=== PATIENT | male | born 1960 | race Caucasian/White ===

== ENCOUNTER 2017-07-13 23:30 | Observation (INO) | payer OTHER ==
[~2017-07-13] VITALS: Ht 175.3 cm; Wt 82.3 kg
[~2017-07-13 23:30] MED LIST: Aspirin Ec PO; BIPOLAR MED; DEPAKOTE125 MG PO; DIABETIC MED; DOES NOT KNOW MEDS; LANTUS 3 M100 UNITS/ SC; LANTUS 3 M100 UNITS1 SC; LISINOPRIL2.5 MG PO; METOPROLOL SUCC25 MG PO; MOBIC7.5 MG PO; Motrin PO; PANTOPRAZOLE SO40 MG PO; RISPERDAL1 MG PO; RISPERDAL3 MG PO; RISPERDAL4 MG PO
[2017-07-14 00:38] LABS: HEMATOCRIT 39.6 % (38.0-50.0); MCH 29.7 PG (29.0-34.0); MCHC 36.9 G/DL (30.0-36.0); MCV 80.7 FL (86-99); MEAN PLAT.VOLUME 11.4 uM^3 (9.0-12.4); PLATELET COUNT 179 K/uL (156-360); RBC DIS.WIDTH-CV 12.1 % (11.8-14.6); RBC DIS.WIDTH-SD 35.1 % (39-53); RED BLOOD COUNT 4.91 M/uL (4.00-5.50); WHITE BLOOD COUNT 9.1 K/uL (4.1-10.2)
[2017-07-14 00:50] LABS: CHLORIDE 96 mEq/L (99-109); SODIUM 133 mEq/L (136-147)
[2017-07-14 00:53] LABS: GLUCOSE 339 mg/dL (70-99)
[2017-07-14 00:54] LABS: ANION GAP 11 MEQ/L (2-14)
[2017-07-14 00:55] LABS: TOTAL BILIRUBIN 1.3 mg/dL (0.0-1.0)
[2017-07-14 00:56] LABS: ALKALINE PHOSPHATASE 73 IU/L (3-129); GFR ESTIMATE (CALCULATED) > 59 mL/min/
[2017-07-14 00:57] LABS: UREA NITROGEN (BUN) 11 mg/dL (9-23)
[2017-07-14 00:58] LABS: TROP-I INTERPRETATION NEGATIVE; TROPONIN-I < 0.01 ng/mL (0.0-0.30)
[2017-07-14 01:00] LABS: LIPASE 34 U/L (1.0-51.0)
[2017-07-14 01:18] LABS: CARBON DIOXIDE (BICARBONATE) 33.1 MEQ/L (20-31)
[2017-07-14 01:19] LABS: INTER. NORMALIZED RATIO 1.1; PROTHROMBIN TIME 11.7 SEC (10.2-12.9)
[2017-07-14 01:21] LABS: D-DIMER ELISA < 150.00 ng/mLDDU (<230); PTT 27.9 SEC (25-37)
[2017-07-14 03:05] LABS: POINT-OF-CARE METER ID UU13113747
[2017-07-14] MEDS ORDERED: RISPERIDONE4 MG PO (04:58)
[2017-07-14] MEDS ORDERED: LIPITOR80 MG PO (04:58)
[2017-07-14] MEDS ORDERED: PRINIVIL20 MG PO (04:59)
[2017-07-14] MEDS ORDERED: TOPROL XL50 MG PO (05:00)
[2017-07-14] MEDS ORDERED: GLIPIZIDE5 MG PO (05:01)
[2017-07-14 05:03] LABS: SAMPLE HEMOLYSIS CHECK 0; SAMPLE ICTERIC CHECK 0; SAMPLE LIPEMIA CHECK 0
[2017-07-14 05:42] LABS: POINT-OF-CARE METER ID UU13113747
[2017-07-14] MEDS ORDERED: ASPIR-LOW81 MG PO (08:56)
[2017-07-14 09:00] VITALS: BP 134/92
[2017-07-14 09:07] LABS: POINT-OF-CARE METER ID UU13113747
[2017-07-14 09:40] LABS: TROP-I INTERPRETATION NEGATIVE; TROPONIN-I 0.01 ng/mL (0.0-0.30)
[2017-07-14 09:53] LABS: Estimated Average Glucose 275 mg/dL (70-123); HDL CHOLESTEROL 28 MG/DL (Desirable>=40); HEMOGLOBIN A1c (GLYCOHEMOGLOB) 11.2 % HGB (Below 5.7); LDL CHOLESTEROL 40 mg/dL (Desirable<100); NON-HDL CHOLESTEROL 70 mg/dL (Desirable<160); TOTAL CHOLESTEROL 98 mg/dL (Desirable<200); TRIGLYCERIDES 149 MG/DL (Normal: <150)
[2017-07-14 12:01] VITALS: BP 177/82
[2017-07-14 12:19] LABS: POINT-OF-CARE METER ID UU13113831
[2017-07-14 15:05] LABS: TROP-I INTERPRETATION NEGATIVE; TROPONIN-I 0.02 ng/mL (0.0-0.30)
[2017-07-14 16:30] VITALS: BP 152/99
[2017-07-14 17:32] LABS: POINT-OF-CARE METER ID UU13113831
[2017-07-14 19:45] VITALS: BP 175/81
[2017-07-14 22:21] LABS: POINT-OF-CARE METER ID UU14162513
[2017-07-15] VITALS: BP 161/76
[2017-07-15 03:50] VITALS: BP 168/84
[2017-07-15 05:56] LABS: ALKALINE PHOSPHATASE 65 IU/L (3-129); AMYLASE 32 IU/L (1-118); DIRECT BILIRUBIN 0.3 mg/dL (0.0-0.3); TOTAL BILIRUBIN 1.7 MG/DL (0.0-1.0)
[2017-07-15 07:57] VITALS: BP 185/90
[2017-07-15] MEDS ORDERED: NITROSTAT0.4 MG SL (11:07)
[2017-07-15] MEDS ORDERED: LISINOPRIL40 MG PO (11:07)
[2017-07-15] MEDS ORDERED: GLIPIZIDE5 MG PO (11:07)
[2017-07-15] MEDS ORDERED: PANTOPRAZOLE SO40 MG PO (11:07)
== END 2017-07-15 16:06 | disposition home or self-care (01) ==
LOC: EME → EDBD 23:30 → EDOF 07-14 07:40 → 5WEST 07-14 07:40 → ENRESERV 07-14 07:47 → 5WEST 07-14 09:17
PROVIDERS: Emergency Medicine; Internal Medicine; Specialist
DX: R07.9 Chest pain, unspecified (principal); R11.2 Nausea with vomiting, unspecified; K21.9 Gastro-esophageal reflux disease without esophagitis; R17 Unspecified jaundice; I25.10 Atherosclerotic heart disease of native coronary artery without angina pectoris; I25.2 Old myocardial infarction; Z95.5 Presence of coronary angioplasty implant and graft; I10 Essential (primary) hypertension; E78.5 Hyperlipidemia, unspecified; R93.3 Abnormal findings on diagnostic imaging of other parts of digestive tract; E11.65 Type 2 diabetes mellitus with hyperglycemia; F17.200 Nicotine dependence, unspecified, uncomplicated; Z91.19 Patient's noncompliance with other medical treatment and regimen; Z91.14 Patient's other noncompliance with medication regimen; F10.10 Alcohol abuse, uncomplicated; F31.9 Bipolar disorder, unspecified; M19.90 Unspecified osteoarthritis, unspecified site; Z79.82 Long term (current) use of aspirin; Z79.84 Long term (current) use of oral hypoglycemic drugs
CPT/HCPCS: 71020; 74000; 74177; 80053; 80061; 80076; 82010; 82150; 82803; 82948; 83036; 83690; 84484; 85027; 85379; 85610; 85730; 93005; 99281; 99285; G0378; J1815; J2270; J2405; J7030; S0028

== ENCOUNTER 2017-07-22 16:26 | Emergency (ER) | payer OTHER ==
[~2017-07-22] VITALS: Ht 172.7 cm; Wt 83.6 kg
[~2017-07-22 16:26] MED LIST changes: +ASPIR-LOW81 MG PO; +GLIPIZIDE5 MG PO; +LIPITOR80 MG PO; +LISINOPRIL40 MG PO; +NITROSTAT0.4 MG SL; +PRINIVIL20 MG PO; +RISPERIDONE4 MG PO; +TOPROL XL50 MG PO
[2017-07-22 17:35] LABS: HEMATOCRIT 41.6 % (38.0-50.0); MCH 30.4 PG (29.0-34.0); MCHC 37.5 G/DL (30.0-36.0); MCV 80.9 FL (86-99); MEAN PLAT.VOLUME 12.4 uM^3 (9.0-12.4); PLATELET COUNT 196 K/uL (156-360); RBC DIS.WIDTH-SD 34.9 % (39-53); RED BLOOD COUNT 5.14 M/uL (4.00-5.50); WHITE BLOOD COUNT 8.9 K/uL (4.1-10.2)
[2017-07-22 17:46] LABS: CHLORIDE 97 mEq/L (99-109); POTASSIUM 3.7 mEq/L (3.7-5.4); SODIUM 133 mEq/L (136-147)
[2017-07-22 17:48] LABS: GLUCOSE 236 mg/dL (70-99)
[2017-07-22 17:49] LABS: ANION GAP 12 MEQ/L (2-14)
[2017-07-22 17:50] LABS: TOTAL BILIRUBIN 1.5 mg/dL (0.0-1.0)
[2017-07-22 17:51] LABS: ALKALINE PHOSPHATASE 61 IU/L (3-129)
[2017-07-22 17:52] LABS: GFR ESTIMATE (CALCULATED) > 59 mL/min/
[2017-07-22 17:53] LABS: UREA NITROGEN (BUN) 15 mg/dL (9-23)
[2017-07-22 18:48] LABS: LIPASE 43 U/L (1.0-51.0)
[2017-07-22 19:04] VITALS: BP 150/89
[2017-07-22 19:12] LABS: ADD MIUA? NO; BILIRUBIN NEGATIVE; BLOOD NEGATIVE; COLOR STRAW ((YELLOW)); GLUCOSE (STRIP) >=500; KETONES NEGATIVE; LEUKOCYTES NEGATIVE; NITRITE NEGATIVE; PROTEIN (STRIP) NEGATIVE; SPECIFIC GRAVITY 1.002 (1.000-1.030); UCUL ADDED? NO; UROBILINOGEN 0.2 MG/DL (0.2-1.0)
[2017-07-22] MEDS ORDERED: PROMETHAZINE HC25 M1 PO (19:25)
[2017-07-22] MEDS ORDERED: BENTYL10 MG PO (19:25)
== END 2017-07-22 19:36 | disposition home or self-care (01) ==
LOC: EME 16:26
DX: R11.2 Nausea with vomiting, unspecified (principal); R19.7 Diarrhea, unspecified; I10 Essential (primary) hypertension; E78.5 Hyperlipidemia, unspecified; I25.2 Old myocardial infarction; Z79.82 Long term (current) use of aspirin; Z72.0 Tobacco use
CPT/HCPCS: 80053; 81003; 83690; 85027; 99281; 99283; J2550

== ENCOUNTER 2017-12-23 11:17 | Inpatient (IN) | payer OTHER ==
[~2017-12-23] VITALS: Ht 175.3 cm; Wt 65.9 kg
[~2017-12-23 11:17] MED LIST changes: +BENTYL10 MG PO; +GLIPIZIDE XL5 MG PO; +METFORMIN HCL500 MG PO; +PROMETHAZINE HC25 M1 PO
[2017-12-23 12:41] LABS: HEMATOCRIT 30.6 % (38.0-50.0); MCH 25.6 PG (29.0-34.0); MCHC 32.7 G/DL (30.0-36.0); MCV 78.5 FL (86-99); PLATELET COUNT 237 K/uL (156-360); RBC DIS.WIDTH-CV 13.2 % (11.8-14.6); RBC DIS.WIDTH-SD 37.3 % (39-53)
[2017-12-23 12:52] LABS: CHLORIDE 94 mEq/L (99-109); POTASSIUM 3.8 mEq/L (3.7-5.4); SODIUM 132 mEq/L (136-147)
[2017-12-23 12:54] LABS: GLUCOSE 358 mg/dL (70-99)
[2017-12-23 12:58] LABS: CREATININE 0.8 mg/dL (0.6-1.3); GFR ESTIMATE (CALCULATED) > 59 mL/min/ (58.99-99999)
[2017-12-23 12:59] LABS: UREA NITROGEN (BUN) 8 mg/dL (9-23)
[2017-12-23] MEDS ORDERED: METFORMIN HCL1000 MG PO (16:09)
[2017-12-23] MEDS ORDERED: AZITHROMYCIN250 MG PO (16:09)
[2017-12-23] MEDS ORDERED: LISINOPRIL20 MG PO (16:19)
[2017-12-23 18:42] VITALS: BP 110/71
[2017-12-23 19:47] LABS: BENZODIAZEPINES, URINE SCREEN Negative (200 ng/mL)
[2017-12-23 23:45] VITALS: BP 122/75
[2017-12-24 03:40] VITALS: BP 120/78
[2017-12-24 08:29] LABS: HEMATOCRIT 27.1 % (38.0-50.0); HEMOGLOBIN 8.9 G/DL (12.5-16.6); MCH 25.7 PG (29.0-34.0); MCHC 32.8 G/DL (30.0-36.0); MCV 78.3 FL (86-99); PLATELET COUNT 190 K/uL (156-360); RBC DIS.WIDTH-CV 13.2 % (11.8-14.6); RBC DIS.WIDTH-SD 37.6 % (39-53); RED BLOOD COUNT 3.46 M/uL (4.00-5.50); WHITE BLOOD COUNT 6.5 K/uL (4.1-10.2)
[2017-12-24 08:30] VITALS: BP 122/64
[2017-12-24 08:32] LABS: ALBUMIN 2.1 G/DL (3.2-4.8); ALKALINE PHOSPHATASE 77 IU/L (3-129); ALT (GPT) 4 IU/L (3-49); AST (GOT) < 7 IU/L (2-34); CHLORIDE 102 MEQ/L (99-109); CREATININE 0.5 MG/DL (0.6-1.3); GFR ESTIMATE (CALCULATED) > 59 mL/min/ (58.99-99999); GLUCOSE 302 mg/dL (70-99); POTASSIUM 3.7 MEQ/L (3.7-5.4); SODIUM 135 MEQ/L (136-147); TOTAL BILIRUBIN 0.3 MG/DL (0.0-1.0); TOTAL PROTEIN 5.3 G/DL (6.4-8.3); UREA NITROGEN (BUN) 7 mg/dL (9-23)
[2017-12-24 11:50] VITALS: BP 124/60
[2017-12-24 16:45] VITALS: BP 124/70
[2017-12-24 19:55] VITALS: BP 117/70
[2017-12-24 23:20] VITALS: BP 129/78
[2017-12-25 06:32] LABS: HEMATOCRIT 29.7 % (38.0-50.0); HEMOGLOBIN 9.4 G/DL (12.5-16.6); MCH 25.5 PG (29.0-34.0); MCHC 31.6 G/DL (30.0-36.0); MCV 80.7 FL (86-99); PLATELET COUNT 197 K/uL (156-360); RBC DIS.WIDTH-CV 13.5 % (11.8-14.6); RED BLOOD COUNT 3.68 M/uL (4.00-5.50); WHITE BLOOD COUNT 5.7 K/uL (4.1-10.2)
[2017-12-25 06:55] LABS: CHLORIDE 103 MEQ/L (99-109); CREATININE 0.5 MG/DL (0.6-1.3); GFR ESTIMATE (CALCULATED) > 59 mL/min/ (58.99-99999); GLUCOSE 229 mg/dL (70-99); POTASSIUM 3.7 MEQ/L (3.7-5.4); SODIUM 140 MEQ/L (136-147); UREA NITROGEN (BUN) 5 mg/dL (9-23)
[2017-12-25 07:50] VITALS: BP 124/71
[2017-12-25 09:29] LABS: IRON 42 MCG/DL (35-150); TRANSFERRIN (TIBC) 158.9 mg/dL (215-380); TRANSFERRIN SATUR. 26 % (20-55)
[2017-12-25 15:55] VITALS: BP 125/83
[2017-12-25 23:05] VITALS: BP 141/75
[2017-12-26 07:24] VITALS: BP 126/78
[2017-12-26 09:58] LABS: HEMOGLOBIN 9.2 G/DL (12.5-16.6); MCH 25.1 PG (29.0-34.0); MCHC 31.7 G/DL (30.0-36.0); MCV 79.2 FL (86-99); PLATELET COUNT 208 K/uL (156-360); RBC DIS.WIDTH-CV 13.5 % (11.8-14.6); RBC DIS.WIDTH-SD 38.7 % (39-53); RED BLOOD COUNT 3.66 M/uL (4.00-5.50); WHITE BLOOD COUNT 6.4 K/uL (4.1-10.2)
[2017-12-26 10:23] LABS: ALBUMIN 2.3 G/DL (3.2-4.8); ALKALINE PHOSPHATASE 76 IU/L (3-129); ALT (GPT) 5 IU/L (3-49); AST (GOT) 8 IU/L (2-34); CHLORIDE 106 MEQ/L (99-109); CREATININE 0.5 MG/DL (0.6-1.3); GFR ESTIMATE (CALCULATED) > 59 mL/min/ (58.99-99999); GLUCOSE 139 mg/dL (70-99); POTASSIUM 3.3 MEQ/L (3.7-5.4); SODIUM 142 MEQ/L (136-147); TOTAL BILIRUBIN 0.2 MG/DL (0.0-1.0); TOTAL PROTEIN 5.4 G/DL (6.4-8.3); UREA NITROGEN (BUN) 4 mg/dL (9-23)
[2017-12-26 16:14] VITALS: BP 128/82
[2017-12-26 22:27] VITALS: BP 132/70
[2017-12-27 07:53] VITALS: BP 125/61
[2017-12-27 16:41] VITALS: BP 134/76
[2017-12-28] VITALS: BP 137/77
[2017-12-28 00:31] LABS: QGTB-NIL 0.07 IU/mL (()); QUANTIFERON TB GOLD NEGATIVE (Negative); TB AG-NIL 0.05 IU/mL (())
[2017-12-28 06:19] LABS: BASOPHIL (%) 0.5 % (0-1); EOSINOPHIL (%) 1.5 % (0-5); EOSINOPHIL COUNT 0.1 K/uL (0-0.3); HEMATOCRIT 28.1 % (38.0-50.0); HEMOGLOBIN 8.9 G/DL (12.5-16.6); IMMATURE GRANULOCYTE (%) 0.9 % (0.0-0.7); LYMPHOCYTE COUNT 2.6 K/uL (1.0-2.8); MCH 25.6 PG (29.0-34.0); MCHC 31.7 G/DL (30.0-36.0); MONOCYTE (%) 5.1 % (3-12); MONOCYTE COUNT 0.3 K/uL (0-0.8); NEUTROPHIL COUNT 2.8 K/uL (1.8-6.4); PLATELET COUNT 203 K/uL (156-360); RBC DIS.WIDTH-SD 39.6 % (39-53); RED BLOOD COUNT 3.47 M/uL (4.00-5.50); WHITE BLOOD COUNT 5.9 K/uL (4.1-10.2)
[2017-12-28 06:58] LABS: CHLORIDE 108 MEQ/L (99-109); CREATININE 0.6 MG/DL (0.6-1.3); GFR ESTIMATE (CALCULATED) > 59 mL/min/ (58.99-99999); GLUCOSE 275 mg/dL (70-99); POTASSIUM 3.9 MEQ/L (3.7-5.4); SODIUM 138 MEQ/L (136-147); UREA NITROGEN (BUN) 6 mg/dL (9-23)
[2017-12-28 07:21] VITALS: BP 157/77
[2017-12-28 11:47] LABS: INTER. NORMALIZED RATIO 1.1
[2017-12-28 11:50] LABS: PTT 34.8 SEC (25-37)
[2017-12-28] MEDS ORDERED: NITROSTAT0.4 MG SL (12:52)
[2017-12-28 16:14] VITALS: BP 103/70
[2017-12-28 20:19] VITALS: BP 132/74
[2017-12-28 22:41] VITALS: BP 137/73
[2017-12-29 05:54] LABS: BASOPHIL (%) 0.4 % (0-1); EOSINOPHIL (%) 1.3 % (0-5); EOSINOPHIL COUNT 0.1 K/uL (0-0.3); HEMATOCRIT 30.5 % (38.0-50.0); HEMOGLOBIN 9.9 G/DL (12.5-16.6); IMMATURE GRANULOCYTE (%) 1.2 % (0.0-0.7); LYMPHOCYTE (%) 40.2 % (15-42); LYMPHOCYTE COUNT 3.1 K/uL (1.0-2.8); MCH 26.3 PG (29.0-34.0); MCHC 32.5 G/DL (30.0-36.0); MCV 81.1 FL (86-99); MONOCYTE (%) 5.1 % (3-12); MONOCYTE COUNT 0.4 K/uL (0-0.8); NEUTROPHIL (%) 51.8 % (45-76); PLATELET COUNT 214 K/uL (156-360); RBC DIS.WIDTH-CV 14.4 % (11.8-14.6); RBC DIS.WIDTH-SD 41.1 % (39-53); RED BLOOD COUNT 3.76 M/uL (4.00-5.50); WHITE BLOOD COUNT 7.8 K/uL (4.1-10.2)
[2017-12-29 06:20] LABS: CHLORIDE 106 MEQ/L (99-109); CREATININE 0.6 MG/DL (0.6-1.3); GFR ESTIMATE (CALCULATED) > 59 mL/min/ (58.99-99999); GLUCOSE 228 mg/dL (70-99); POTASSIUM 3.8 MEQ/L (3.7-5.4); SODIUM 140 MEQ/L (136-147); UREA NITROGEN (BUN) 7 mg/dL (9-23)
[2017-12-29 07:19] VITALS: BP 125/84
[2017-12-29 15:24] VITALS: BP 108/58
[2017-12-29 23:43] VITALS: BP 129/76
[2017-12-30 06:12] LABS: BASOPHIL (%) 0.5 % (0-1); EOSINOPHIL (%) 1.5 % (0-5); EOSINOPHIL COUNT 0.1 K/uL (0-0.3); HEMATOCRIT 28.2 % (38.0-50.0); HEMOGLOBIN 8.9 G/DL (12.5-16.6); IMMATURE GRANULOCYTE (%) 1.1 % (0.0-0.7); LYMPHOCYTE (%) 43.5 % (15-42); LYMPHOCYTE COUNT 3.2 K/uL (1.0-2.8); MCH 25.6 PG (29.0-34.0); MCHC 31.6 G/DL (30.0-36.0); MCV 81.3 FL (86-99); MONOCYTE (%) 4.8 % (3-12); MONOCYTE COUNT 0.4 K/uL (0-0.8); NEUTROPHIL (%) 48.6 % (45-76); NEUTROPHIL COUNT 3.6 K/uL (1.8-6.4); PLATELET COUNT 204 K/uL (156-360); RBC DIS.WIDTH-CV 14.7 % (11.8-14.6); RBC DIS.WIDTH-SD 41.5 % (39-53); RED BLOOD COUNT 3.47 M/uL (4.00-5.50); WHITE BLOOD COUNT 7.4 K/uL (4.1-10.2)
[2017-12-30 06:34] LABS: CHLORIDE 104 MEQ/L (99-109); CREATININE 0.6 MG/DL (0.6-1.3); GFR ESTIMATE (CALCULATED) > 59 mL/min/ (58.99-99999); GLUCOSE 261 mg/dL (70-99); POTASSIUM 3.7 MEQ/L (3.7-5.4); SODIUM 139 MEQ/L (136-147); UREA NITROGEN (BUN) 9 mg/dL (9-23)
[2017-12-30 07:33] VITALS: BP 122/75
[2017-12-30 16:35] VITALS: BP 127/74
[2017-12-30 23:32] VITALS: BP 116/72
[2017-12-31 08:24] LABS: HEMATOCRIT 32.1 % (38.0-50.0); MCH 25.4 PG (29.0-34.0); MCHC 31.2 G/DL (30.0-36.0); MCV 81.7 FL (86-99); PLATELET COUNT 221 K/uL (156-360); RBC DIS.WIDTH-CV 15.1 % (11.8-14.6); RBC DIS.WIDTH-SD 42.5 % (39-53); RED BLOOD COUNT 3.93 M/uL (4.00-5.50); WHITE BLOOD COUNT 7.4 K/uL (4.1-10.2)
[2017-12-31 08:53] LABS: CHLORIDE 107 MEQ/L (99-109); CREATININE 0.6 MG/DL (0.6-1.3); GFR ESTIMATE (CALCULATED) > 59 mL/min/ (58.99-99999); GLUCOSE 131 mg/dL (70-99); POTASSIUM 3.5 MEQ/L (3.7-5.4); SODIUM 143 MEQ/L (136-147); UREA NITROGEN (BUN) 10 mg/dL (9-23)
[2017-12-31 09:42] VITALS: BP 126/84
[2017-12-31 16:39] VITALS: BP 120/69
[2018-01-01 00:58] VITALS: BP 116/71
[2018-01-01 06:50] LABS: BASOPHIL (%) 0.7 % (0-1); BASOPHIL COUNT 0.1 K/uL (0-0.1); EOSINOPHIL (%) 1.6 % (0-5); EOSINOPHIL COUNT 0.1 K/uL (0-0.3); HEMATOCRIT 30.8 % (38.0-50.0); HEMOGLOBIN 9.7 G/DL (12.5-16.6); IMMATURE GRANULOCYTE (%) 1.5 % (0.0-0.7); LYMPHOCYTE (%) 45.9 % (15-42); LYMPHOCYTE COUNT 3.7 K/uL (1.0-2.8); MCH 25.7 PG (29.0-34.0); MCHC 31.5 G/DL (30.0-36.0); MCV 81.7 FL (86-99); MONOCYTE (%) 7.2 % (3-12); MONOCYTE COUNT 0.6 K/uL (0-0.8); NEUTROPHIL (%) 43.1 % (45-76); NEUTROPHIL COUNT 3.4 K/uL (1.8-6.4); PLATELET COUNT 206 K/uL (156-360); RBC DIS.WIDTH-CV 15.5 % (11.8-14.6); RED BLOOD COUNT 3.77 M/uL (4.00-5.50)
[2018-01-01 06:53] LABS: CHLORIDE 104 MEQ/L (99-109); CREATININE 0.7 MG/DL (0.6-1.3); GFR ESTIMATE (CALCULATED) > 59 mL/min/ (58.99-99999); GLUCOSE 126 mg/dL (70-99); POTASSIUM 3.6 MEQ/L (3.7-5.4); SODIUM 142 MEQ/L (136-147); UREA NITROGEN (BUN) 11 mg/dL (9-23)
[2018-01-01 07:05] VITALS: BP 138/87
[2018-01-01] MEDS ORDERED: AUGMENTIN875 MG PO (09:52)
[2018-01-01] MEDS ORDERED: DIGESTIVE PROB250 MG PO (09:52)
[2018-01-01] MEDS ORDERED: PROAIR HFA8.5 GM IH (09:54)
[2018-01-01] MEDS ORDERED: GLUCOMETER MC (11:29)
[2018-01-01] MEDS ORDERED: 1ST TIER UNILE1 EAC1 MC (11:30)
[2018-01-01] MEDS ORDERED: TEST STRIPS MC (11:31)
[2018-01-01] MEDS ORDERED: LEVEMIR FL100 UNIT/1 SC ×2 (12:18)
[2018-01-01] MEDS ORDERED: NOVOLIN N100 UNITS/ SC (14:52)
[2018-01-01 15:55] VITALS: BP 136/79
[2018-01-02 00:16] VITALS: BP 121/77
[2018-01-02 06:27] LABS: BASOPHIL (%) 0.8 % (0-1); BASOPHIL COUNT 0.1 K/uL (0-0.1); EOSINOPHIL (%) 1.5 % (0-5); EOSINOPHIL COUNT 0.1 K/uL (0-0.3); HEMATOCRIT 32.1 % (38.0-50.0); HEMOGLOBIN 10.2 G/DL (12.5-16.6); IMMATURE GRANULOCYTE (%) 0.9 % (0.0-0.7); LYMPHOCYTE (%) 50.1 % (15-42); LYMPHOCYTE COUNT 3.3 K/uL (1.0-2.8); MCH 25.8 PG (29.0-34.0); MCHC 31.8 G/DL (30.0-36.0); MCV 81.1 FL (86-99); MONOCYTE (%) 5.4 % (3-12); MONOCYTE COUNT 0.4 K/uL (0-0.8); NEUTROPHIL (%) 41.3 % (45-76); NEUTROPHIL COUNT 2.7 K/uL (1.8-6.4); PLATELET COUNT 202 K/uL (156-360); RBC DIS.WIDTH-CV 16.2 % (11.8-14.6); RBC DIS.WIDTH-SD 45.1 % (39-53); RED BLOOD COUNT 3.96 M/uL (4.00-5.50); WHITE BLOOD COUNT 6.6 K/uL (4.1-10.2)
[2018-01-02 06:53] LABS: CHLORIDE 105 MEQ/L (99-109); CREATININE 0.6 MG/DL (0.6-1.3); GFR ESTIMATE (CALCULATED) > 59 mL/min/ (58.99-99999); SODIUM 141 MEQ/L (136-147); UREA NITROGEN (BUN) 11 mg/dL (9-23)
[2018-01-02 06:59] LABS: GLUCOSE 285 mg/dL (70-99)
[2018-01-02 07:15] VITALS: BP 117/78
[2018-01-02] MEDS ORDERED: NOVOLIN N100 UNITS/ SC (11:24)
== END 2018-01-02 13:38 | disposition home or self-care (01) | DRG 168 ==
LOC: EME 11:17 → EDOF 15:38 → 5EAST 15:38 → ENRESERV 15:39 → 5EAST 18:13 → ENPENDDIS 01-01 → 5EAST 01-02 13:38
PROVIDERS: Hospitalist; Internal Medicine; Internal Medicine Pulmonary Disease; Nurse Practitioner Family; Physician Assistant
DX: J85.1 Abscess of lung with pneumonia (principal); I10 Essential (primary) hypertension; E11.9 Type 2 diabetes mellitus without complications; F31.9 Bipolar disorder, unspecified; E11.65 Type 2 diabetes mellitus with hyperglycemia; F17.220 Nicotine dependence, chewing tobacco, uncomplicated; I25.10 Atherosclerotic heart disease of native coronary artery without angina pectoris; R63.4 Abnormal weight loss; Z68.21 Body mass index [BMI] 21.0-21.9, adult; F14.90 Cocaine use, unspecified, uncomplicated; F12.90 Cannabis use, unspecified, uncomplicated; Z87.891 Personal history of nicotine dependence; Z79.4 Long term (current) use of insulin; D50.9 Iron deficiency anemia, unspecified; Z95.5 Presence of coronary angioplasty implant and graft; K08.9 Disorder of teeth and supporting structures, unspecified
CPT/HCPCS: 36415; 71046; 71260; 80048; 80048 91; 80053; 80061; 80076; 80306 90; 81003; 82948; 83036; 83540; 83605; 84443; 84466; 85025; 85027; 85610; 85652; 85730; 86480 90; 87040; 87070; 87102; 87116; 87205; 87206; 87278; 87449; 88108; 93005; 94640; 94760; 99202; 99281; 99285; J0295; J1650; J1815; J2250; J7030; J7050

== ENCOUNTER 2018-01-22 09:24 | Emergency (ER) | payer OTHER ==
[~2018-01-22] VITALS: Ht 170.2 cm; Wt 73.8 kg
[~2018-01-22 09:24] MED LIST changes: +1ST TIER UNILE1 EAC1 MC; +AUGMENTIN875 MG PO; +AZITHROMYCIN250 MG PO; +DIGESTIVE PROB250 MG PO; +GLUCOMETER MC; +LEVEMIR FL100 UNIT/1 SC; +LISINOPRIL20 MG PO; +METFORMIN HCL1000 MG PO; +NOVOLIN N100 UNITS/ SC; +PROAIR HFA8.5 GM IH; +TEST STRIPS MC
[2018-01-22 10:20] LABS: HEMATOCRIT 31.8 % (38.0-50.0); HEMOGLOBIN 11.1 G/DL (12.5-16.6); MCH 28.5 PG (29.0-34.0); MCHC 34.9 G/DL (30.0-36.0); MCV 81.7 FL (86-99); PLATELET COUNT 152 K/uL (156-360); RBC DIS.WIDTH-CV 17.8 % (11.8-14.6); RBC DIS.WIDTH-SD 52.1 % (39-53); RED BLOOD COUNT 3.89 M/uL (4.00-5.50); WHITE BLOOD COUNT 5.5 K/uL (4.1-10.2)
[2018-01-22 10:33] LABS: ALBUMIN 3.6 g/dL (3.2-4.8)
[2018-01-22 10:34] LABS: CHLORIDE 106 mEq/L (99-109); POTASSIUM 3.6 mEq/L (3.7-5.4); SODIUM 141 mEq/L (136-147)
[2018-01-22 10:36] LABS: GLUCOSE 147 mg/dL (70-99); TOTAL PROTEIN 6.7 g/dL (6.4-8.3)
[2018-01-22 10:38] LABS: TOTAL BILIRUBIN 0.4 mg/dL (0.0-1.0)
[2018-01-22 10:39] LABS: ALKALINE PHOSPHATASE 79 IU/L (3-129); SERUM ETHYL ALCOHOL < 10 mg/dL
[2018-01-22 10:40] LABS: CREATININE 0.8 mg/dL (0.6-1.3); GFR ESTIMATE (CALCULATED) > 59 mL/min/ (58.99-99999)
[2018-01-22 10:41] LABS: AST (GOT) 19 IU/L (2-34); UREA NITROGEN (BUN) 14 mg/dL (9-23)
[2018-01-22 10:43] LABS: ALT (GPT) 7 IU/L (3-49)
[2018-01-22 12:53] LABS: AMPHETAMINE NEGATIVE (500 ng/mL); BARBITURATES NEGATIVE (200 ng/mL); BENZODIAZEPINES NEGATIVE (150 ng/mL); BUPRENORPHINE NEGATIVE (10 ng/mL); COCAINE NEGATIVE (150 ng/mL); METHADONE NEGATIVE (200 ng/mL); METHAMPHETAMINE NEGATIVE (500 ng/mL); OPIATES (MORPHINE) NEGATIVE (100 ng/mL); OXYCODONE NEGATIVE (100 ng/mL); PHENCYCLIDINE NEGATIVE (25 ng/mL); PROPOXYPHENE NEGATIVE (300 ng/mL); THC CANNABINOIDS NEGATIVE (50 ng/mL); TRICYCLIC ANTIDEPRESSANTS NEGATIVE (300 ng/mL)
[2018-01-22] MEDS ORDERED: RISPERDAL2 MG PO (13:37)
[2018-01-22 14:44] VITALS: BP 105/64
== END 2018-01-22 14:46 | disposition home or self-care (01) ==
LOC: EME 09:24
PROVIDERS: Nurse Practitioner Family
DX: F31.2 Bipolar disorder, current episode manic severe with psychotic features (principal); Z91.14 Patient's other noncompliance with medication regimen; Z76.0 Encounter for issue of repeat prescription; J44.9 Chronic obstructive pulmonary disease, unspecified; G89.29 Other chronic pain; M54.5 Low back pain; I10 Essential (primary) hypertension; E11.9 Type 2 diabetes mellitus without complications; Z79.84 Long term (current) use of oral hypoglycemic drugs; F17.200 Nicotine dependence, unspecified, uncomplicated
CPT/HCPCS: 80053; 85027; 90839; 99281; 99283; G0480

== ENCOUNTER 2018-01-26 10:10 | Inpatient (IN) | payer OTHER ==
[~2018-01-26] VITALS: Ht 175.3 cm; Wt 75.8 kg
[~2018-01-26 10:10] MED LIST changes: +RISPERDAL2 MG PO
[2018-01-26 12:06] LABS: HEMATOCRIT 34.5 % (38.0-50.0); HEMOGLOBIN 11.8 G/DL (12.5-16.6); MCH 28.4 PG (29.0-34.0); MCHC 34.2 G/DL (30.0-36.0); MCV 82.9 FL (86-99); PLATELET COUNT 159 K/uL (156-360); RBC DIS.WIDTH-CV 17.2 % (11.8-14.6); RBC DIS.WIDTH-SD 51.8 % (39-53); RED BLOOD COUNT 4.16 M/uL (4.00-5.50); WHITE BLOOD COUNT 7.3 K/uL (4.1-10.2)
[2018-01-26 12:15] LABS: AMPHETAMINE NEGATIVE (500 ng/mL); BARBITURATES NEGATIVE (200 ng/mL); BENZODIAZEPINES NEGATIVE (150 ng/mL); BUPRENORPHINE NEGATIVE (10 ng/mL); COCAINE NEGATIVE (150 ng/mL); METHADONE NEGATIVE (200 ng/mL); METHAMPHETAMINE NEGATIVE (500 ng/mL); OPIATES (MORPHINE) NEGATIVE (100 ng/mL); OXYCODONE NEGATIVE (100 ng/mL); PHENCYCLIDINE NEGATIVE (25 ng/mL); PROPOXYPHENE NEGATIVE (300 ng/mL); THC CANNABINOIDS NEGATIVE (50 ng/mL); TRICYCLIC ANTIDEPRESSANTS NEGATIVE (300 ng/mL)
[2018-01-26 12:17] LABS: CHLORIDE 104 mEq/L (99-109); SODIUM 138 mEq/L (136-147)
[2018-01-26 12:19] LABS: GLUCOSE 203 mg/dL (70-99)
[2018-01-26 12:22] LABS: SERUM ETHYL ALCOHOL < 10 mg/dL
[2018-01-26 12:23] LABS: CREATININE 0.8 mg/dL (0.6-1.3); GFR ESTIMATE (CALCULATED) > 59 mL/min/ (58.99-99999)
[2018-01-26 12:25] LABS: UREA NITROGEN (BUN) 14 mg/dL (9-23)
[2018-01-26 12:26] LABS: ACETAMINOPHEN (TYLENOL) < 10 mcg/mL (10-30); POTASSIUM 4.4 mEq/L (3.7-5.4); SALICYLATE < 5.0 MG/DL (15-30)
[2018-01-26 17:40] VITALS: BP 152/83
[2018-01-26 17:50] VITALS: BP 152/83
[2018-01-27 04:37] VITALS: BP 101/58
[2018-01-27 07:26] VITALS: BP 129/69
[2018-01-27 15:41] VITALS: BP 140/80
[2018-01-28 07:51] VITALS: BP 111/62
[2018-01-28 15:51] VITALS: BP 107/65
[2018-01-29 07:52] VITALS: BP 135/76
[2018-01-29 15:30] VITALS: BP 108/69
[2018-01-30 07:34] VITALS: BP 113/76
[2018-01-30 15:49] VITALS: BP 97/56
[2018-01-30 21:21] LABS: HEMOGLOBIN 12.2 G/DL (12.5-16.6); MCH 27.9 PG (29.0-34.0); MCV 84.5 FL (86-99); RBC DIS.WIDTH-CV 16.9 % (11.8-14.6); RBC DIS.WIDTH-SD 52.2 % (39-53); RED BLOOD COUNT 4.38 M/uL (4.00-5.50); WHITE BLOOD COUNT 7.6 K/uL (4.1-10.2)
[2018-01-30 21:25] LABS: PLATELET COUNT 218 K/uL (156-360)
[2018-01-30 22:14] LABS: ALKALINE PHOSPHATASE 53 IU/L (3-129); ALT (GPT) 9 IU/L (3-49); AST (GOT) 13 IU/L (2-34); CHLORIDE 103 MEQ/L (99-109); CREATININE 0.9 MG/DL (0.6-1.3); GFR ESTIMATE (CALCULATED) > 59 mL/min/ (58.99-99999); GLUCOSE 80 mg/dL (70-99); POTASSIUM 4.6 MEQ/L (3.7-5.4); SODIUM 137 MEQ/L (136-147); THYROTROPIN (TSH) 2.8 MIU/L (0.4-5.5); TOTAL BILIRUBIN 0.4 MG/DL (0.0-1.0); TOTAL PROTEIN 7.1 G/DL (6.4-8.3)
[2018-01-30 22:15] LABS: UREA NITROGEN (BUN) 22 mg/dL (9-23)
[2018-01-31 07:35] VITALS: BP 106/73
[2018-01-31 16:03] VITALS: BP 126/74
[2018-02-01 08:11] VITALS: BP 111/61
[2018-02-01 15:42] VITALS: BP 139/74
[2018-02-02 08:10] VITALS: BP 112/67
[2018-02-02] MEDS ORDERED: METFORMIN HCL500 MG PO (09:25)
[2018-02-02] MEDS ORDERED: NOVOLIN N100 UNITS/ SC (09:25)
[2018-02-02] MEDS ORDERED: LITHIUM CARBON300 M2 PO (09:25)
[2018-02-02] MEDS ORDERED: CLONAZEPAM0.5 MG PO (09:26)
[2018-02-02] MEDS ORDERED: KETOROLAC TROME10 MG PO (09:26)
[2018-02-02] MEDS ORDERED: RISPERDAL3 MG PO (10:25)
== END 2018-02-02 10:47 | disposition home or self-care (01) | DRG 885 ==
LOC: EME 10:10 → 1WEST 13:38 → EDOF 13:38 → ENRESERV 17:27 → 1WEST 17:27
PROVIDERS: Emergency Medicine; Hospitalist; Psychiatry & Neurology Psychiatry
DX: F31.2 Bipolar disorder, current episode manic severe with psychotic features (principal); G89.29 Other chronic pain; J98.4 Other disorders of lung; E11.9 Type 2 diabetes mellitus without complications; Z91.14 Patient's other noncompliance with medication regimen; F11.10 Opioid abuse, uncomplicated; I10 Essential (primary) hypertension; I25.10 Atherosclerotic heart disease of native coronary artery without angina pectoris; E78.5 Hyperlipidemia, unspecified; K21.9 Gastro-esophageal reflux disease without esophagitis; Z79.84 Long term (current) use of oral hypoglycemic drugs; I25.2 Old myocardial infarction
CPT/HCPCS: 71046; 80048; 80053; 80178; 82948; 84443; 85027; 90837; 94640; 94640 76; 97150 GO; 97167 GO; 99202; 99281; 99285; G0480; J1815; J2250

== ENCOUNTER 2018-03-05 22:24 | Emergency (ER) | payer OTHER ==
[~2018-03-05] VITALS: Ht 175.3 cm; Wt 72.7 kg
[~2018-03-05 22:24] MED LIST changes: +CLONAZEPAM0.5 MG PO; +KETOROLAC TROME10 MG PO; +LITHIUM CARBON300 M2 PO
[2018-03-05 23:07] LABS: BASOPHIL (%) 0.4 % (0-1); BASOPHIL COUNT 0.1 K/uL (0-0.1); EOSINOPHIL COUNT 0.1 K/uL (0-0.3); HEMATOCRIT 35.4 % (38.0-50.0); HEMOGLOBIN 13.1 G/DL (12.5-16.6); IMMATURE GRANULOCYTE (%) 0.7 % (0.0-0.7); LYMPHOCYTE (%) 10.8 % (15-42); LYMPHOCYTE COUNT 1.4 K/uL (1.0-2.8); MCH 29.8 PG (29.0-34.0); MCV 80.6 FL (86-99); MONOCYTE COUNT 0.8 K/uL (0-0.8); NEUTROPHIL (%) 81.1 % (45-76); NEUTROPHIL COUNT 10.5 K/uL (1.8-6.4); PLATELET COUNT 134 K/uL (156-360); RBC DIS.WIDTH-CV 14.6 % (11.8-14.6); RBC DIS.WIDTH-SD 43.1 % (39-53); RED BLOOD COUNT 4.39 M/uL (4.00-5.50)
[2018-03-05 23:19] LABS: INTER. NORMALIZED RATIO 1.1
[2018-03-05 23:22] LABS: CHLORIDE 101 mEq/L (99-109); PTT 25.2 SEC (25-37)
[2018-03-05 23:23] LABS: SODIUM 135 mEq/L (136-147)
[2018-03-05 23:24] LABS: GLUCOSE 163 mg/dL (70-99)
[2018-03-05 23:28] LABS: GFR ESTIMATE (CALCULATED) > 59 mL/min/ (58.99-99999)
[2018-03-05 23:29] LABS: UREA NITROGEN (BUN) 24 mg/dL (9-23)
[2018-03-05 23:37] LABS: TROP-I INTERPRETATION NEGATIVE; TROPONIN-I 0.02 ng/mL (0.0-0.30)
[2018-03-06 00:05] LABS: CREATINE KINASE 83 IU/L (1-294)
[2018-03-06 01:41] LABS: APPEARANCE CLEAR ((CLEAR)); BILIRUBIN NEGATIVE; BLOOD NEGATIVE; COLOR YELLOW ((YELLOW)); GLUCOSE (STRIP) NEGATIVE; KETONES 5; LEUKOCYTES NEGATIVE; NITRITE NEGATIVE; PROTEIN (STRIP) 100; SPECIFIC GRAVITY 1.018 (1.000-1.030)
[2018-03-06 01:43] LABS: BACTERIA NONE SEEN /HPF; EPITHELIAL CELLS NONE SEEN /HPF; HYALINE CASTS 0-5 /LPF; MUCUS TRACE /LPF; RED BLOOD CELLS 0-5 /HPF (0-5); UCUL ADDED? NO; WHITE BLOOD CELLS 0-5 /HPF (0-5)
[2018-03-06 01:44] LABS: SERUM ETHYL ALCOHOL < 10 mg/dL
[2018-03-06 02:36] VITALS: BP 127/77
== END 2018-03-06 02:43 | disposition home or self-care (01) ==
LOC: EME → EDBD 22:24 → EME 03-06 02:43
PROVIDERS: Emergency Medicine
DX: R55 Syncope and collapse (principal); I10 Essential (primary) hypertension; E78.5 Hyperlipidemia, unspecified; E11.9 Type 2 diabetes mellitus without complications; K21.9 Gastro-esophageal reflux disease without esophagitis; F31.9 Bipolar disorder, unspecified; I25.2 Old myocardial infarction; F17.200 Nicotine dependence, unspecified, uncomplicated; Z88.8 Allergy status to other drugs, medicaments and biological substances
CPT/HCPCS: 70450; 80048; 80178; 81003; 82550; 84484; 85025; 85610; 85730; 93005; 99281; 99284; G0480; J7030